=== PATIENT | male | born 1970 | race American Indian/Alaskan Native ===

== ENCOUNTER 2017-01-20 09:16 | Emergency (ER) | payer OTHER ==
[~2017-01-20] VITALS: Ht 172.7 cm; Wt 68.0 kg
[2017-01-20 09:18] VITALS: BP_SYST 141
--- NOTE | 2017-01-20 09:22 | NUR ---
Pt report received from HENRY Olivia. Pt presents with abcess to Right inguinal area. Redness, swelling noted to site, and extremely painful to touch. Skin intact, no drainage. Pt states that he noticed the abcess since 01/18/2017.
--- NOTE | 2017-01-20 09:22 | NUR ---
Patient to ER bed 7 to gown for evaluation. Side rails up. Report given to Benedict FIGUEROA.
--- NOTE | 2017-01-20 09:25 | NUR ---
ER Dr. Aragon at bedside examining patient.
[2017-01-20] MEDS ORDERED: LIDOCAINE 1% 10 MG/ML, 20 ML MDV IJ ONE (09:30)
[2017-01-20] MEDS ORDERED: LIDOCAINE 1%, 20 ML MDV 20 ML ONE (09:34)
[2017-01-20 10:00] VITALS: BP_SYST 126
--- NOTE | 2017-01-20 10:00 | NUR ---
Patient given written and verbal discharge instructions and verbalizes understanding. ER MD discussed with patient the results and treatment provided. Patient in stable condition. ID arm band removed. Rx of Keflex, Bactrim DS, Ibuprofen given. Patient educated on pain management and to follow up with PMD. Pain Scale 2/10, tolerable. Opportunity for questions provided and answered.
--- NOTE | 2017-01-20 15:19 | NUR ---
[facility] called in with Rx conflict. Pt was sent home with Rx for Bactrim with sulfa allergy. Dr. Kimbrough ordered that the Rx be changed to Cipro 500mg PO Bid x 10 days, the Rx was called in.
== END 2017-01-20 10:00 | disposition home or self-care (01) ==
LOC: SED 09:16
DX: L02.214 Cutaneous abscess of groin (principal); Z88.2 Allergy status to sulfonamides; Z88.5 Allergy status to narcotic agent
CPT/HCPCS: 10060; 99283; J2001